=== PATIENT | female | born 1970 | race Asian ===

== ENCOUNTER → 2024-02-21 | Outpatient (CLI) | payer OTHER | END | disposition home or self-care (01) | LOC: RADMN 14:29 | PROVIDERS: ATTEND Internal Medicine Geriatric Medicine | DX: M25.561 Pain in right knee (principal) | CPT/HCPCS: 73562-TC ==

== ENCOUNTER 2024-05-04 23:41 | Emergency (ER) | payer OTHER ==
[~2024-05-04] VITALS: Ht 154.9 cm; Wt 81.8 kg
[2024-05-04 23:43] VITALS: BP 154/97; PULSE 79; RESP 18; TEMP 97.6; O2SAT 96
[2024-05-05] MEDS: ACETAMINOPHEN 325 MG TABLET PO ONE (01:57)
== END 2024-05-05 02:24 | disposition home or self-care (01) ==
LOC: EMS 23:41
DX: S00.03XA Contusion of scalp, initial encounter (principal); I10 Essential (primary) hypertension; W50.0XXA Accidental hit or strike by another person, initial encounter; Y93.89 Activity, other specified; Y92.89 Other specified places as the place of occurrence of the external cause; Y99.0 Civilian activity done for income or pay
CPT/HCPCS: 99282; Z7502; Z7610

== ENCOUNTER 2024-05-22 09:41 | Day surgery (SDC) | payer OTHER ==
[~2024-05-22] VITALS: Ht 154.9 cm; Wt 83.0 kg
[~2024-05-22 09:41] MED LIST: ATOR10TA69 PO; ERGO500093 PO; GLYCOPYRROLATE 0.2 MG/ML VIAL ONE; LIDOCAINE/PF 2% 5 ML VIAL ONE; LISI5TAB21 PO; LOSA-381 PO; ONDANSETRON HCL 4 MG/2 ML VIAL ONE; PROPOFOL 1% 20 ML VIAL IVP ONE
[2024-05-22] MEDS: SODIUM CHLORIDE 0.9% 1,000 ML IV ONE (12:48)
[2024-05-22] MEDS ORDERED: OXYGEN THERAPY IH SCH (20:00)
== END 2024-05-22 12:20 | disposition home or self-care (01) ==
LOC: SURGERY 09:41
PROVIDERS: ATTEND Specialist
DX: R19.4 Change in bowel habit (principal); I10 Essential (primary) hypertension; E78.5 Hyperlipidemia, unspecified; E66.811 Obesity, class 1; Z79.899 Other long term (current) drug therapy; Z68.34 Body mass index [BMI] 34.0-34.9, adult; Z80.3 Family history of malignant neoplasm of breast; Z80.8 Family history of malignant neoplasm of other organs or systems
CPT/HCPCS: 45380; 88305; J2704; J3490 ×2; J2405

== ENCOUNTER → 2024-11-08 | Outpatient (CLI) | payer OTHER ==
[~2024-11-08] MED LIST changes: -ERGO500093 PO; -GLYCOPYRROLATE 0.2 MG/ML VIAL ONE; -LIDOCAINE/PF 2% 5 ML VIAL ONE; -LISI5TAB21 PO; -ONDANSETRON HCL 4 MG/2 ML VIAL ONE; -PROPOFOL 1% 20 ML VIAL IVP ONE
== END | disposition home or self-care (01) ==
LOC: RADMN 14:08
PROVIDERS: ATTEND Internal Medicine Geriatric Medicine
DX: M17.11 Unilateral primary osteoarthritis, right knee (principal); M76.891 Other specified enthesopathies of right lower limb, excluding foot; M25.562 Pain in left knee
CPT/HCPCS: 73562-TC

== ENCOUNTER → 2024-12-27 | Outpatient (CLI) | payer OTHER | END | disposition home or self-care (01) | LOC: RADMN 16:15 | PROVIDERS: ATTEND Internal Medicine Geriatric Medicine | DX: M19.042 Primary osteoarthritis, left hand (principal); M79.642 Pain in left hand | CPT/HCPCS: 73130-TC ==

== ENCOUNTER → 2025-03-14 | Outpatient (CLI) | payer OTHER ==
[2025-03-14 13:21] LABS: PLATELET COUNT (AUTO) 433 K/uL (150-450); RED BLOOD CELL COUNT(AUTO) 5.20 MIL/uL (4.00-5.20); RED CELL DISTRIBUTION WIDTH 13.9 % (11.5-14.5); WHITE BLOOD COUNT (AUTO) 7.7 K/uL (4.5-11.0)
[2025-03-14 13:26] LABS: CREATININE 0.43 mg/dL (0.60-1.30); GLUCOSE,RANDOM 98 mg/dL (70-110); SODIUM SERUM 139 mmol/L (136-145); UREA NITROGEN, BLOOD 12 mg/dL (7-18)
[2025-03-14 13:27] LABS: ASPARTATE AMINOTRANSFERASE 20 U/L (15-37); CALCIUM, TOTAL 8.3 mg/dL (8.8-10.5); CHOL/HDL RATIO 6.6 (3.9-5.7); GLOMERULAR FILTR. RATE CALC > 60 mL/min (>60); LDL CHOL (CALC.) 158 mg/dL (0-130); TOTAL PROTEIN, SERUM 7.5 g/dL (6.4-8.2)
[2025-03-15 10:06] LABS: FOLATE SERUM 10.0 ng/mL (5.4-); VITAMIN B12 LEVEL 418.0 pg/mL (211-911)
== END | disposition home or self-care (01) ==
LOC: LABMN 12:37
PROVIDERS: ATTEND Internal Medicine Geriatric Medicine
DX: I77.6 Arteritis, unspecified (principal); M35.00 Sjogren syndrome, unspecified; R73.03 Prediabetes; R92.8 Other abnormal and inconclusive findings on diagnostic imaging of breast
CPT/HCPCS: 80053; 80061; 82607; 82746; 83036; 85025; 85610; 85730